=== PATIENT | male | born 1960 | race Caucasian/White ===

== ENCOUNTER 2019-04-02 05:19 | Emergency (ER) | payer BC, OTHER ==
[2019-04-02 06:01] LABS: BASOPHILS % (AUTO) 0.1 %; EOSINOPHILS % (AUTO) 0.1 %; HGB - HEMOGLOBIN 14.6 g/dL (14.0-18.0); LYMPHOCYTES # (AUTO) 2.3 10^3/uL (1.5-3.5); MEAN CORPUSCULAR HEMOGLOBIN 29.4 pg (27.0-31.0); MEAN CORPUSCULAR HGB CONC 35.4 g/dL (32.0-36.0); MEAN CORPUSCULAR VOLUME 82.9 fL (80.0-94.0); MEAN PLATELET VOLUME 8.7 fL (7.4-11.4); MONOCYTES # (AUTO) 0.5 10^3/uL (0.0-1.0); MONOCYTES % (AUTO) 7.6 %; NEUTROPHILS % (AUTO) 58.3 %; PLT - PLATELET COUNT 287 10^3/uL (130-450); RED BLOOD COUNT 4.97 10^6/uL (4.70-6.10); RED CELL DISTRIBUTION WIDTH 12.8 % (12.0-15.0); WHITE BLOOD COUNT 6.9 x10^3/uL (4.8-10.8)
[2019-04-02 06:20] LABS: ALBUMIN 4.2 g/dL (3.2-5.5); ALBUMIN/GLOBULIN RATIO 1.5 (1.0-2.2); BILIRUBIN,TOTAL 0.6 mg/dL (0.2-1.0); CALCIUM 8.8 mg/dL (8.5-10.3); CREATININE 0.7 mg/dL (0.6-1.2)
--- NOTE | 2019-04-02 06:31 | XRAY Report ---
Reason: Chest Pain Procedure Date: 04/02/2019 Accession Number: [id number] / [id number] Procedure: XR - Chest 1 View X-Ray CPT Code: 69740 Final Report FULL RESULT: EXAM: CHEST RADIOGRAPHY EXAM DATE: 04/02/2019 06:20 AM. CLINICAL HISTORY: Chest Pain. Intermittent chest pain, sternal chest pain at midnight, pain this morning. COMPARISON: CHEST 2 VIEW 06/10/2017 1:01 AM. TECHNIQUE: 1 view. FINDINGS: Lungs/Pleura: No focal opacities evident. No pleural effusion. No pneumothorax. Mediastinum: Within exam limitations, the cardiomediastinal contour is normal. Other: None. IMPRESSION: Stable appearance of the chest without acute cardiopulmonary abnormality. RADIA
--- NOTE | 2019-04-02 06:38 | ED Physician Documentation ---
PD HPI CHEST PAIN - Stated complaint Stated Complaint: SHARP CHEST PX - Chief complaint Chief Complaint: Cardiac - History obtained from History obtained from: Patient - History of Present Illness Timing - onset: How many hours ago (6) Timing - onset during: Sleep Timing - details: Intermittant Pain level max: 4 Pain level now: 0 Quality: Sharp Location: Left chest, Right chest Radiation: No: Jaw, Neck, Back, Abdominal, Left upper extremity, Right upper extremity Improved by: Nothing. No: Rest, Oxygen, Nitro, ASA, Antacids, Other medication Worsened by: No: Exertion, Inspiration, Eating, Movement, Palpation, Position Associated symptoms: Nausea. No: Shortness of air, Diaphoresis, Vomiting, Feeling faint / dizzy, General Weakness, Palpitations, Cough Similar symptoms before: Diagnosis (has had reflux before) Recently seen: Not recently seen Review of Systems Constitutional: denies: Fever, Chills Ears: denies: Ear pain Nose: denies: Rhinorrhea / runny nose, Congestion Cardiac: denies: Palpitations Respiratory: denies: Dyspnea, Cough, Wheezing : denies: Dysuria Skin: denies: Rash Musculoskeletal: denies: Neck pain, Back pain Neurologic: denies: Headache PD PAST MEDICAL HISTORY - Past Medical History Past Medical History: Yes Cardiovascular: Hypertension, High cholesterol Endocrine/Autoimmune: Type 2 diabetes GI: GERD Derm: Psoriasis - Past Surgical History Past Surgical History: Yes HEENT: Tonsil/Adenoidectomy - Present Medications Home Medications: Ambulatory Orders Medication Instructions Recorded Confirmed Lisinopril 1 tab PO DAILY 03/15/13 06/10/17 Aspirin 81 mg PO DAILY 06/10/17 06/10/17 Atorvastatin Calcium [Lipitor] 80 mg PO DAILY 06/10/17 06/10/17 Azithromycin [Zithromax] 250 mg PO DAILY #4 tablet 06/10/17 Esomeprazole Magnesium [Nexium] 40 mg PO DAILY 06/10/17 06/10/17 Fluticasone Propionate [Flovent 1 puffs INH DAILY 06/10/17 06/10/17 Diskus] HYDROcod/ACETAM 5/325 [[place] 5/325] 1 tab PO Q6HR PRN 06/10/17 06/10/17 Hydrocodone/Chlorphen P-Stirex 5 ml PO BID #60 [id number] 06/10/17 [Hydrocodone-Chlorphen ER Susp] Hydroxyzine Pamoate [Vistaril] 25 mg PO DAILY 06/10/17 06/10/17 Ibuprofen 1 tab PO Q6HR PRN 06/10/17 06/10/17 Insulin Glargine [Lantus Solostar] 27 unit SQ DAILY 06/10/17 06/10/17 Loperamide [Imodium] 1 tab PO Q6HR PRN 06/10/17 06/10/17 Loratadine 1 tab PO DAILY PRN 06/10/17 06/10/17 Methocarbamol 1 tab PO BID 06/10/17 06/10/17 Ondansetron HCl [Zofran] 1 tab PO Q6HR PRN 06/10/17 06/10/17 Oxybutynin [Ditropan] 1 tab ORAL BID 06/10/17 06/10/17 Oxycodone HCl/Acetaminophen 2 tab PO Q6HR PRN 06/10/17 06/10/17 [Oxycodon-Acetaminophen 2.5-325] Promethazine [Phenergan] 1 tab PO DAILY PRN 06/10/17 06/10/17 Secukinumab [Cosentyx Syringe] 300 mg SQ DAILY 06/10/17 06/10/17 Tacrolimus [Protopic] 100 gm TP DAILY 06/10/17 06/10/17 raNITIdine [Zantac] 300 mg PO DAILY PRN 06/10/17 06/10/17 - Allergies Allergies/Adverse Reactions: Allergies Allergy/AdvReac Type Severity Reaction Status Date / Time gabapentin Allergy Anaphylaxis Verified 04/02/19 05:30 methotrexate Allergy Edema Verified 04/02/19 05:30 - Social History Does the pt smoke?: No Smoking Status: Never smoker Does the pt drink ETOH?: Yes Does the pt have substance abuse?: No - Immunizations Immunizations are current?: Yes - POLST Patient has POLST: No PD ED PE NORMAL - Vitals Vital signs reviewed: Yes - General General: Alert and oriented X 3, No acute distress - HEENT HEENT: Moist mucous membranes - Neck Neck: Supple, no meningeal sign - Cardiac Cardiac: RRR, Strong equal pulses - Respiratory Respiratory: No respiratory distress, Clear bilaterally - Abdomen Abdomen: Soft, Non tender, Non distended - Derm Derm: Warm and dry - Extremities Extremities: No edema, No calf tenderness / cord - Neuro Neuro: Alert and oriented X 3 Results - Vitals Vitals: Vital Signs - 24 hr 04/02/19 04/02/19 05:27 06:47 Temperature 36.7 C Heart Rate 90 79 Respiratory 16 20 Rate Blood Pressure 138/80 H 140/86 H O2 Saturation 96 93 Oxygen O2 Source Room air - EKG (time done) 0634 Rate: Rate (enter#) (78) Rhythm: NSR [place]: Normal Intervals: Normal MI QRS: Normal Ischemia: Normal ST segments - Labs Labs: Laboratory Tests 04/02/19 04/02/19 04/02/19 05:56 05:56 05:56 WBC 6.9 RBC 4.97 Hgb 14.6 Hct 41.2 L MCV 82.9 MCH 29.4 MCHC 35.4 RDW 12.8 Plt Count 287 MPV 8.7 Neut # (Auto) 4.0 Lymph # (Auto) 2.3 [place] # (Auto) 0.5 Eos # (Auto) 0.0 Baso # (Auto) 0.0 Absolute Nucleated RBC 0.00 Nucleated RBC % 0.0 Sodium 138 Potassium 3.5 Chloride 106 Carbon Dioxide 22 Anion Gap 10.0 BUN 13 Creatinine 0.7 Estimated GFR (MDRD) 117 Glucose 139 H Calcium 8.8 Total Bilirubin 0.6 AST 20 ALT 37 Alkaline Phosphatase 63 Troponin I High Sens 2.8 Total Protein 7.0 Albumin 4.2 Globulin 2.8 Albumin/Globulin Ratio 1.5 Lipase 48 - Rads (name of study) cxr Radiology: Prelim report reviewed, EMP read contemporaneously, See rad report (No acute abnormality) PD MEDICAL DECISION MAKING - ED course Complexity details: reviewed results, re-evaluated patient, considered differential (No ST elevation ND, no aortic dissection, no PE, no tension pneumothorax, no aortic aneurysm), d/w patient ED course: Patient with a difficult chest pain. Negative high-sensitivity troponin. Took aspirin prior to arrival. Will start on baby aspirin for home. Has had a cardiac stress test but several years ago. We will follow-up with his doctor for another one. Patient counseled regarding signs and symptoms for which I believe and urgent re-evaluation would be necessary. Patient with good understanding of and agreement to plan and is comfortable going home at this time This document was made in part using voice recognition software. While efforts are made to proofread this document, sound alike and grammatical errors may occ ur. Departure - Departure Disposition: 01 Home, Self Care Clinical Impression: Atypical chest pain Condition: Good Instructions: ED Chest Pain Atypical Unkn Cause Follow-Up: TORO FLOOD MD [Primary Care Provider] - Within 3 Days Comments: Your tests are normal today. You should have a cardiac stress test within the next week with your doctor. Start on a baby aspirin daily. Return if you worsen. Discharge Date/Time: 04/02/19 06:55
[2019-04-02 06:48] VITALS: BP 140/86
== END 2019-04-02 06:55 | disposition home or self-care (01) ==
LOC: ED 05:19
DX: R07.89 Other chest pain (principal); I10 Essential (primary) hypertension; E11.9 Type 2 diabetes mellitus without complications; Z79.4 Long term (current) use of insulin
CPT/HCPCS: 36415; 71045; 80053; 83690; 84484; 85025; 93005; 99284

== ENCOUNTER 2022-11-04 08:00 | Outpatient (CLI) | payer BC, OTHER ==
--- NOTE | 2022-11-05 12:00 | XRAY Report ---
PROCEDURE: Shoulder 3 View RT INDICATIONS: RIGHT SHOULDER PAIN TECHNIQUE: 4 views of the shoulder were acquired. COMPARISON: None. FINDINGS: Bones: No fractures or dislocations. No suspicious bony lesions. There is moderate acromioclavicul ar and glenohumeral joint degeneration. Visualized ribs appear intact. Soft tissues: No suspicious soft tissue calcifications. IMPRESSION: Moderate degenerative joint disease. Reviewed by: Purnima Ludwig MD on 11/05/2022 11:59 AM PDT Approved by: Purnima Ludwig MD on 11/05/2022 11:59 AM PDT Station ID: [id number]
== END 2022-11-04 23:59 | disposition home or self-care (01) ==
LOC: DI.WOS 08:00
PROVIDERS: ATTEND Physician Assistant Surgical
DX: M19.011 Primary osteoarthritis, right shoulder (principal)